=== PATIENT | male | born 1945 | race Caucasian/White ===

== ENCOUNTER 2018-07-18 12:53 | Inpatient (IN) ==
[2018-07-18 13:20] LABS: Basophils % 0.4 % (0.1-2.0); Eosinophils # 0.2 K/mm3 (0.0-0.4); Eosinophils % 2.2 % (0.1-12.0); Hematocrit 48.2 % (42.0-52.0); Lymphocytes # 2.6 K/mm3 (0.7-4.5); Lymphocytes % 34.8 % (10-50); Mean Corpuscular HGB Conc 33.1 g/dL (31.8-35.4); Mean Corpuscular Hemoglobin 30.8 pg (27.0-31.2); Mean Corpuscular Volume 92.9 fl (80-94); Mean Platelet Volume 8.2 fl (7.4-10.4); Monocytes # 0.6 K/mm3 (0.1-1.0); Monocytes % 7.3 % (1.7-9.3); Neutrophils # 4.1 K/mm3 (1.8-7.8); Neutrophils % 55.3 % (37.0-80.0); Platelet Count 313 K/mm3 (142-424); Red Blood Count 5.19 M/mm3 (4.60-6.20); Red Cell Distribution Width 13.3 % (11.5-17.5); White Blood Count 7.5 K/mm3 (4.8-10.8)
[2018-07-18 13:26] LABS: Anion Gap 15.5 mEq/L (5-15); Calcium 10.2 mg/dL (8.5-10.1); Potassium 3.5 mmoL/L (3.5-5.1)
--- NOTE | 2018-07-18 21:50 | History & Physical Report ---
*Admission Date: 07/18/18 *Chief complaint: rt lower leg pain *History of present illness: this wm was sent to [facility] card by his pcp -inés on chronic limb ischemia with acutely cyanotic cold purple right mid calf right foot and right digits. Successful reconstruction of the right popliteal artery and right superficial femoral artery 100% occlusion reduced to less than 10% with 2 bare-metal self-expanding stents preceded by drug-eluting ballooning Plan: Aspirin Plavix In one month I would like patient to be on Xarelto 2.5 by mouth twice a day along with aspirin 81 mg daily LDL less than 55 Avoidance of tobacco products Control of hypertension Risk factor modification Patient requires cardiovascular evaluation. I would recommend stress testing echocardiography and risk stratification for coronary artery disease as outpatient [facility] History Medical History: Reports:: Hypertension, Kidney Stones Denies:: Seizures Have you ever received a pneumonia vaccine?: No (PT REFUSES) Have you received a flu vaccine this season?: No (PT REFUSES) Laterality Cases: Bilateral: Tonsillectomy Other Surgeries: Yes: Other (R leg Sx, wrist sx) - *Social History Educational Level: Completed High School Smoking Status: Current every day smoker Tobacco Type: cigarettes #Yrs smoked (if former smoker): 50 Alcohol Intake: never Alcohol Intake Frequency:: 0-2 drinks per day Substance Use Type: denies use Occupational Status: retired Housing: house Household Members: spouse Travel in the last 8 weeks: None - Psychiatric History Expresses thoughts of harming self/others: None Suicide Plan Description: No Plan *Family Hx:: No significant family history Review of Systems - Review of Systems Review of systems:: pertinent systems reviewed and negative unless documented below - Constitutional Denies fatigue, Denies fever(s) - Eyes Denies change in vision - ENT Denies sore throat - *Cardiovascular Reports other (acute ischemia rt lower leg ), Denies chest pain - *Respiratory Denies cough - *Gastrointestinal Denies abdominal pain - *Genitourinary Denies blood in urine - *Musculoskeletal Denies joint pain - Integumentary/Breasts Denies rash - *Neurologic Denies confusion, Denies seizure-like activity - Psychiatric Denies anxiety Meds Home Medications Medication Instructions Recorded Confirmed Type B-complex with vitamin C capsule 1 cap PO DAILY 07/18/18 07/18/18 History aspirin 81 mg tablet,delayed 81 mg PO DAILY 07/18/18 07/18/18 History release cannabidiol (CBD) 100 mg/mL oral 10 mg PO DAILY ml 07/18/18 07/18/18 History solution cholecalciferol (vitamin D3) 1,000 1,000 unit PO DAILY 07/18/18 07/18/18 History unit capsule coenzyme Q10 200 mg capsule 200 mg PO DAILY 07/18/18 07/18/18 History lorazepam 1 mg tablet 1 mg PO HSP PRN 07/18/18 07/19/18 History omega-3 fatty acids 1,000 mg 1,000 mg PO DAILY 07/18/18 07/18/18 History capsule Allergies Allergy/AdvReac Type Severity Reaction Status Date / Time No Known Allergies Allergy Verified 07/18/18 16:34 Exam Vital signs and Labs for Last 24 Hours: Temp Pulse Resp BP Pulse Ox 98.3 F 66 18 200/89 H 96 07/18/18 16:41 07/18/18 18:50 07/18/18 18:50 07/18/18 18:50 07/18/18 18:50 Laboratory Results - last 24 hr 07/18/18 13:10: WBC 7.5, RBC 5.19, Hgb 16.0, Hct 48.2, MCV 92.9, MCH 30.8, MCHC 33.1, RDW 13.3, Plt Count 313, MPV 8.2, Neut % (Auto) 55.3, Lymph % (Auto) 34.8, [place] % (Auto) 7.3, Eos % (Auto) 2.2, Baso % (Auto) 0.4, Neut # (Auto) 4.1, Lymph # (Auto) 2.6, [place] # (Auto) 0.6, Eos # (Auto) 0.2, Baso # (Auto) 0.0 07/18/18 13:10: Sodium 136, Potassium 3.5, Chloride 99, Carbon Dioxide 25, Anion Gap 15.5 H, BUN 12, Creatinine 0.80, Estimated Creat Clear 88, Estimated GFR 95, Est GFR ( Amer) 115, Glucose 177 H, Calcium 10.2 H 07/18/18 15:14: Activated Clotting Time 300 H* I & O for Last 24 hours: Intake & Output 07/16/18 07/17/18 07/18/18 07/19/18 11:59 11:59 11:59 11:59 Intake Total 240 / 240 Balance 240 / 240 Weight 192 lb 7 oz - Constitutional no acute distress - *Routine HEENT Exam Head: Present: normocephalic Eye: Present: EOMI, PERRL. Absent: conjunctival icterus ENT: Present: mucous membranes dry - *Routine Neck Exam Present: supple. Absent: carotid bruit - *Routine Respiratory Exam Present: CTA bilaterally - *Routine Cardiovascular Exam Present: RRR, murmur, S4 - *Routine Abdominal Exam Present: soft - *Routine Extremities Exam Present: pallor, extremity cold to touch. Absent: pulses intact, calf tenderness - *Routine Skin Exam Absent: rash - *Routine Neurological Exam Present: alert, oriented X3, CN II-XII intact. Absent: motor deficit - Routine Psychiatric Exam Present: normal affect Assessment and Plan (1) Tobacco use Current visit: Yes Status: Acute Category: Medical Code(s): Z72.0 - Tobacco use (2) Ischemia of right lower extremity Current visit: Yes Status: Acute Category: Medical Code(s): I99.8 - Other disorder of circulatory system (3) Peripheral arterial disease Current visit: Yes Status: Chronic Category: Medical Code(s): I73.9 - Peripheral vascular disease, unspecified (4) HTN (hypertension) Current visit: No Status: Chronic Qualifiers: Hypertension type: essential hypertension Qualified Code(s): I10 - Essential (primary) hypertension Category: Medical Code(s): I10 - Essential (primary) hypertension
[2018-07-19 06:37] LABS: Basophils % 0.5 % (0.1-2.0); Eosinophils # 0.2 K/mm3 (0.0-0.4); Mean Corpuscular Volume 90.8 fl (80-94); Mean Platelet Volume 7.6 fl (7.4-10.4); Monocytes # 0.6 K/mm3 (0.1-1.0)
[2018-07-19 06:43] LABS: Anion Gap 13.7 mEq/L (5-15); Potassium 3.7 mmoL/L (3.5-5.1)
[2018-07-19 06:45] LABS: Eosinophils % 2.5 % (0.1-12.0); Hematocrit 42.9 % (42.0-52.0); Hemoglobin 14.4 g/dL (14.1-18.0); Lymphocytes % 26.6 % (10-50); Mean Corpuscular HGB Conc 33.5 g/dL (31.8-35.4); Mean Corpuscular Hemoglobin 30.4 pg (27.0-31.2); Monocytes % 7.8 % (1.7-9.3); Neutrophils # 4.8 K/mm3 (1.8-7.8); Neutrophils % 62.6 % (37.0-80.0); Platelet Count 257 K/mm3 (142-424); Red Blood Count 4.73 M/mm3 (4.60-6.20); Red Cell Distribution Width 13.3 % (11.5-17.5); White Blood Count 7.7 K/mm3 (4.8-10.8)
[2018-07-19 07:10] LABS: Calcium 8.5 mg/dL (8.5-10.1)
--- NOTE | 2018-07-19 10:28 | Progress Note ---
Subjective Date: 07/19/18 Time: 09:30 Principal diagnosis: ischemic right foot Interval history: Is a 72-year-old white gentleman who came into Dr. Perez's office yesterday with a cold right lower extremity. The patient was admitted to the hospital for an ischemic right foot and underwent right lower extremity runoff yesterday. Sessile reconstruction of the right popliteal artery and right superficial femoral arteries. The 100% occlusion was reduced to less than 10% with 2 bare- metal stents. The patient will remain on Plavix and aspirin for 30 days and then will be switched over to aspirin and Xarelto 2.5 mg. He denies any chest pain or pressure but he denies any shortness of breath, fever, chills, nausea, vomiting, diarrhea, PND or orthopnea. Throughout the night, the patient did have a palpable right pedal pulse. This morning the patient has lost his right pedal pulse. The pedal pulse could not be dopplered either. He states that his foot is more purple now than it was earlier this morning. His right lower extremity is cold and purple. He is having pain in the right lower extremity as well. He states that the pain in his right lower extremity is moderate to severe and associated with numbness and tingling. Exam Vital signs and Labs for Last 24 Hours: Temp Pulse Resp BP Pulse Ox 98.4 F 70 17 178/94 H 94 L 07/19/18 07:50 07/19/18 07:50 07/19/18 07:50 07/19/18 07:50 07/19/18 07:50 Laboratory Results - last 24 hr 07/18/18 13:10: WBC 7.5, RBC 5.19, Hgb 16.0, Hct 48.2, MCV 92.9, MCH 30.8, MCHC 33.1, RDW 13.3, Plt Count 313, MPV 8.2, Neut % (Auto) 55.3, Lymph % (Auto) 34.8, [place] % (Auto) 7.3, Eos % (Auto) 2.2, Baso % (Auto) 0.4, Neut # (Auto) 4.1, Lymph # (Auto) 2.6, [place] # (Auto) 0.6, Eos # (Auto) 0.2, Baso # (Auto) 0.0 07/18/18 13:10: Sodium 136, Potassium 3.5, Chloride 99, Carbon Dioxide 25, Anion Gap 15.5 H, BUN 12, Creatinine 0.80, Estimated Creat Clear 88, Estimated GFR 95, Est GFR ( Amer) 115, Glucose 177 H, Calcium 10.2 H 07/18/18 15:14: Activated Clotting Time 300 H* 07/19/18 05:55: WBC 7.7, RBC 4.73, Hgb 14.4, Hct 42.9, MCV 90.8, MCH 30.4, MCHC 33.5, RDW 13.3, Plt Count 257, MPV 7.6, Neut % (Auto) 62.6, Lymph % (Auto) 26.6, [place] % (Auto) 7.8, Eos % (Auto) 2.5, Baso % (Auto) 0.5, Neut # (Auto) 4.8, Lymph # (Auto) 2.0, [place] # (Auto) 0.6, Eos # (Auto) 0.2, Baso # (Auto) 0.0 07/19/18 05:55: Sodium 138, Potassium 3.7, Chloride 102, Carbon Dioxide 26, Anion Gap 13.7, BUN 8 D, Creatinine 0.77, Estimated Creat Clear 84, Estimated GFR 100, Est GFR ( Amer) 121, Glucose 176 H, Calcium 8.5 D I & O for Last 24 hours: Intake & Output 07/16/18 07/17/18 07/18/18 07/19/18 23:59 23:59 23:59 23:59 Intake Total 240 / 240 0 / 0 Balance 240 / 240 0 / 0 Weight 192 lb 7 oz - *Routine HEENT Exam Head: Present: normocephalic, atraumatic Eye: Present: EOMI, PERRL ENT: Present: mucous membranes moist - *Routine Neck Exam Present: supple, full ROM, normal carotid upstroke. Absent: JVD, carotid bruit, lymphadenopathy - *Routine Respiratory Exam Present: CTA bilaterally - *Routine Cardiovascular Exam Present: RRR, Normal S1, Normal S2. Absent: murmur, gallop, rubs - *Routine Abdominal Exam Present: soft, normoactive bowel sounds. Absent: tenderness - *Routine Extremities Exam Present: cyanosis (Right lower extremity). Absent: clubbing, edema, pulses intact (Right lower extremity has no pulse) - *Routine Skin Exam Present: warm (Except right lower extremity which is cold). Absent: rash - *Routine Neurological Exam Present: alert, oriented X3, CN II-XII intact. Absent: sensory deficit, motor deficit - Detailed Eye Exam Eyelids: Left normal inspection Progress Note: A&P (1) Ischemia of right lower extremity Status: Acute Current Visit: Yes (2) Right leg pain Status: Acute Current Visit: Yes (3) Peripheral arterial disease Status: Chronic Current Visit: Yes (4) Claudication Status: Acute Current Visit: No (5) HTN (hypertension) Status: Chronic Current Visit: No Assessment and Plan for All Diagnoses:: Plan: 1. The patient was admitted from Dr. Perez's office with an ischemic right lower extremity. The patient had a purple cold right lower extremity. He was taken to the cardiac catheterization laboratory and underwent a runoff of his right lower extremity. The patient did have reconstruction of his right popliteal and right superficial femoral arteries with 100% occlusion was reduced to less than 10% stenosis with 2 bare-metal stents. She will remain on aspirin and Plavix for dual antiplatelet therapy. 2. The patient has continued to have pain in the right lower extremity. He states even at stenting the pain never resolved. He is getting morphine as needed for this. 3. The patient did have a palpable right pedal pulse through the night last night. This morning around 8 AM there was no pedal pulse palpated and there was no pedal pulse by Doppler. The patient still has no pedal pulse on the right and there is no pulse by Doppler either. The patient's right lower extremity is cold and purple again this morning. The patient will be taken back down to the cardiac catheterization laboratory to undergo right lower extremity runoff with an antegrade stick. 4. The patient will remain n.p.o. 5. The patient has been educated on the risks and benefits of proceeding with the right lower extremity runoff. The patient has verbalized understanding and is agreeable in pursuing procedure. 6. The patient's blood pressure is elevated. This is most likely due to the pain he is currently experienced. We will continue to follow his blood pressure and make changes as needed. 7. His LDL goal less than 55. 8. Further recommend agents were made pending the patient's response to treatment following his repeat right lower extremity runoff today. Thank you for the opportunity help participate in the care of this patient.
--- NOTE | 2018-07-19 11:05 | Pharmacy Consult Notes ---
[facility] Pharmacy VTE Monitoring - Patient Demographics Admission date: 07/18/18 Report Date: 07/19/18 Time: 11:05 Allergies/Adverse Reactions: Patient Allergies No Known Allergies Allergy (Verified 07/18/18 16:34) Height: 1.85 m Weight: 87.288 kg Patient Problems: Current Active Problems Ischemia of right lower extremity (Acute) Right leg pain (Acute) Peripheral arterial disease (Chronic) - VTE Risk Labs: VTE Related Lab Results Hgb 14.4 g/dL (14.1-18.0) 07/19/18 05:55 Hct 42.9 % (42.0-52.0) 07/19/18 05:55 Plt Count 257 K/mm3 (142-424) 07/19/18 05:55 BUN 8 mg/dL (7-18) D 07/19/18 05:55 Creatinine 0.77 mg/dL (0.70-1.30) 07/19/18 05:55 Estimated Creat Clear 84 mL/min (50-200) 07/19/18 05:55 Clinical Trial Participant: No - Prophylaxis VTE Prophylaxis Ordered?: Yes Types of VTE Prophylaxis: TEDS Knee High
--- NOTE | 2018-07-19 13:22 | Progress Note ---
Internal Medicine - PN: Subj *Date: 07/19/18 *Time: 08:00 Interval history: doing better but no pulse in rt lower leg this am and card coming to see pt gu[place] Exam Vital signs and Labs for Last 24 Hours: Temp Pulse Resp BP Pulse Ox 98.4 F 16 L 17 157/89 H 95 07/19/18 07:50 07/19/18 12:48 07/19/18 07:50 07/19/18 12:48 07/19/18 12:48 Laboratory Results - last 24 hr 07/18/18 13:10: WBC 7.5, RBC 5.19, Hgb 16.0, Hct 48.2, MCV 92.9, MCH 30.8, MCHC 33.1, RDW 13.3, Plt Count 313, MPV 8.2, Neut % (Auto) 55.3, Lymph % (Auto) 34.8, [place] % (Auto) 7.3, Eos % (Auto) 2.2, Baso % (Auto) 0.4, Neut # (Auto) 4.1, Lymph # (Auto) 2.6, [place] # (Auto) 0.6, Eos # (Auto) 0.2, Baso # (Auto) 0.0 07/18/18 13:10: Sodium 136, Potassium 3.5, Chloride 99, Carbon Dioxide 25, Anion Gap 15.5 H, BUN 12, Creatinine 0.80, Estimated Creat Clear 88, Estimated GFR 95, Est GFR ( Amer) 115, Glucose 177 H, Calcium 10.2 H 07/18/18 15:14: Activated Clotting Time 300 H* 07/19/18 05:55: WBC 7.7, RBC 4.73, Hgb 14.4, Hct 42.9, MCV 90.8, MCH 30.4, MCHC 33.5, RDW 13.3, Plt Count 257, MPV 7.6, Neut % (Auto) 62.6, Lymph % (Auto) 26.6, [place] % (Auto) 7.8, Eos % (Auto) 2.5, Baso % (Auto) 0.5, Neut # (Auto) 4.8, Lymph # (Auto) 2.0, [place] # (Auto) 0.6, Eos # (Auto) 0.2, Baso # (Auto) 0.0 07/19/18 05:55: Sodium 138, Potassium 3.7, Chloride 102, Carbon Dioxide 26, Anion Gap 13.7, BUN 8 D, Creatinine 0.77, Estimated Creat Clear 84, Estimated GFR 100, Est GFR ( Amer) 121, Glucose 176 H, Calcium 8.5 D I & O for Last 24 hours: Intake & Output 07/17/18 07/18/18 07/19/18 07/20/18 11:59 11:59 11:59 11:59 Intake Total 240 / 240 Balance 240 / 240 Weight 192 lb 7 oz - Constitutional no acute distress - *Routine HEENT Exam Head: Present: normocephalic Eye: Present: EOMI, PERRL ENT: Present: mucous membranes dry - *Routine Neck Exam Absent: JVD - *Routine Respiratory Exam Present: CTA bilaterally - *Routine Cardiovascular Exam Present: RRR Comments: no def pulse rt lower leg - *Routine Abdominal Exam Present: soft - *Routine Extremities Exam Absent: pulses intact, calf tenderness - *Routine Skin Exam Present: pallor - *Routine Neurological Exam Present: alert, CN II-XII intact - Routine Psychiatric Exam Present: normal affect Assessment and Plan (1) Tobacco use Current visit: Yes Status: Acute Category: Medical Code(s): Z72.0 - Tobacco use (2) Ischemia of right lower extremity Current visit: Yes Status: Acute Category: Medical Code(s): I99.8 - Other disorder of circulatory system (3) Peripheral arterial disease Current visit: Yes Status: Chronic Category: Medical Code(s): I73.9 - Peripheral vascular disease, unspecified (4) HTN (hypertension) Current visit: No Status: Chronic Qualifiers: Hypertension type: essential hypertension Qualified Code(s): I10 - Essential (primary) hypertension Category: Medical Code(s): I10 - Essential (primary) hypertension
[2018-07-20 07:20] LABS: Basophils % 0.2 % (0.1-2.0); Eosinophils # 0.1 K/mm3 (0.0-0.4); Hematocrit 40.7 % (42.0-52.0); Hemoglobin 13.2 g/dL (14.1-18.0); Lymphocytes # 1.3 K/mm3 (0.7-4.5); Lymphocytes % 19.4 % (10-50); Mean Corpuscular HGB Conc 32.4 g/dL (31.8-35.4); Mean Corpuscular Hemoglobin 29.9 pg (27.0-31.2); Mean Platelet Volume 7.6 fl (7.4-10.4); Monocytes # 0.6 K/mm3 (0.1-1.0); Neutrophils # 4.9 K/mm3 (1.8-7.8); Neutrophils % 70.5 % (37.0-80.0); Platelet Count 223 K/mm3 (142-424); Red Blood Count 4.43 M/mm3 (4.60-6.20); Red Cell Distribution Width 13.6 % (11.5-17.5)
[2018-07-20 07:27] LABS: Anion Gap 11.7 mEq/L (5-15); Calcium 8.6 mg/dL (8.5-10.1); Potassium 3.7 mmoL/L (3.5-5.1)
--- NOTE | 2018-07-20 08:08 | Progress Note ---
Subjective Date: 07/20/18 Time: 08:05 Principal diagnosis: ischemic right foot Interval history: 72-year-old white male in bed in no acute distress. No pain in the right leg this morning. The foot is warm with a good pulse. Discussed the necessity for smoking cessation. Exam Vital signs and Labs for Last 24 Hours: Temp Pulse Resp BP Pulse Ox 98.2 F 69 16 139/70 97 07/20/18 08:00 07/20/18 08:00 07/20/18 08:00 07/20/18 08:00 07/20/18 08:00 Laboratory Results - last 24 hr 07/19/18 11:38: Activated Clotting Time 307 H* 07/19/18 11:57: Activated Clotting Time 285 H* 07/19/18 12:35: Activated Clotting Time 233 H* 07/19/18 13:09: Activated Clotting Time 226 H* 07/19/18 13:36: Activated Clotting Time 199 H* 07/20/18 06:21: WBC 7.0, RBC 4.43 L, Hgb 13.2 L, Hct 40.7 L, MCV 92.0, MCH 29.9, MCHC 32.4, RDW 13.6, Plt Count 223, MPV 7.6, Neut % (Auto) 70.5, Lymph % (Auto) 19.4, [place] % (Auto) 8.0, Eos % (Auto) 2.0, Baso % (Auto) 0.2, Neut # (Auto) 4.9, Lymph # (Auto) 1.3, [place] # (Auto) 0.6, Eos # (Auto) 0.1, Baso # (Auto) 0.0 07/20/18 06:21: Sodium 139, Potassium 3.7, Chloride 103, Carbon Dioxide 28, Anion Gap 11.7, BUN 10, Creatinine 0.74, Estimated Creat Clear 84, Estimated GFR 104, Est GFR ( Amer) 126, Glucose 167 H, Calcium 8.6 I & O for Last 24 hours: Intake & Output 07/17/18 07/18/18 07/19/18 07/20/18 11:59 11:59 11:59 11:59 Intake Total 240 / 240 60 / 60 Balance 240 / 240 60 / 60 Weight 192 lb 7 oz 192 lb 6.993 oz - *Routine HEENT Exam Head: Present: normocephalic Eye: Present: EOMI, PERRL ENT: Present: mucous membranes moist - *Routine Respiratory Exam Present: CTA bilaterally. Absent: accessory muscle use, rales, rhonchi, wheezes - *Routine Cardiovascular Exam Present: RRR. Absent: murmur, gallop, rubs - *Routine Extremities Exam Absent: edema, calf tenderness - *Routine Skin Exam Present: warm. Absent: cyanosis - *Routine Neurological Exam Present: alert, oriented X3, moving all extremities Progress Note: A&P (1) Tobacco use Status: Acute Current Visit: Yes (2) Ischemia of right lower extremity Status: Acute Current Visit: Yes (3) Peripheral arterial disease Status: Chronic Current Visit: Yes (4) HTN (hypertension) Status: Chronic Current Visit: No Assessment and Plan for All Diagnoses:: 1. Okay for discharge home from cardiology standpoint. 2. Continue aspirin 81 mg daily along with Brilinta 90 mg twice daily. In 1 month we will plan to discontinue Brilinta in favor of Xarelto 2.5 mg twice daily. 3. Tobacco cessation 4. Continue Coreg 12.5 mg twice daily 5. Follow-up in 1 week.
--- NOTE | 2018-07-20 13:22 | Discharge Summary ---
General - General Admission date:: 07/18/18 Discharge date: 07/20/18 HPI HPI: this wm was sent to [facility] card by his pcp -inés on chronic limb ischemia with acutely cyanotic cold purple right mid calf right foot and right digits. Successful reconstruction of the right popliteal artery and right superficial femoral artery 100% occlusion reduced to less than 10% with 2 bare-metal self-expanding stents preceded by drug-eluting ballooning Plan: Aspirin Plavix In one month I would like patient to be on Xarelto 2.5 by mouth twice a day along with aspirin 81 mg daily LDL less than 55 Avoidance of tobacco products Control of hypertension Risk factor modification Patient requires cardiovascular evaluation. I would recommend stress testing echocardiography and risk stratification for coronary artery disease as outpatient Hospital Course Hospital Course: 07/18/18 Impression: Acute on chronic limb ischemia with acutely cyanotic cold purple right mid calf right foot and right digits. Successful reconstruction of the right popliteal artery and right superficial femoral artery 100% occlusion reduced to less than 10% with 2 bare-metal self-expanding stents preceded by drug-eluting ballooning Plan: Aspirin Plavix In one month I would like patient to be on Xarelto 2.5 by mouth twice a day along with aspirin 81 mg daily LDL less than 55 Avoidance of tobacco products Control of hypertension Risk factor modification Patient requires cardiovascular evaluation. I would recommend stress testing echocardiography and risk stratification for coronary artery disease as outpatient 07/19/18 Impression: Successful percutaneous revascularization of acutely thrombosed right leg 100% occlusion reduced to less than 10% with 4 self-expanding stents preceded by angioplasty and followed by post stent angioplasty Plan: Brilinta 90 twice a day plus aspirin 81 mg daily Avoidance of tobacco products LDL less than 55 Physical therapy Aggressive risk factor modification Objective Vital signs: Temp Pulse Resp BP Pulse Ox 98.7 F 64 18 130/62 97 07/20/18 11:43 07/20/18 11:43 07/20/18 11:43 07/20/18 11:43 07/20/18 11:43 no acute distress - *Routine HEENT Exam Head: Present: normocephalic Eye: Present: PERRL ENT: Present: mucous membranes moist - *Routine Respiratory Exam Present: CTA bilaterally - *Routine Cardiovascular Exam Present: RRR - *Routine Abdominal Exam Present: soft, normoactive bowel sounds - *Routine Extremities Exam Present: full ROM Comments: dressing to josse femoral, bruising noted - *Routine Neurological Exam Present: alert, oriented X3 - Routine Psychiatric Exam Present: normal affect Results Labs on day of discharge: Labs from last 24 hours 07/20/18 07/20/18 07/19/18 06:21 06:21 13:36 WBC 7.0 RBC 4.43 L Hgb 13.2 L Hct 40.7 L MCV 92.0 MCH 29.9 MCHC 32.4 RDW 13.6 Plt Count 223 MPV 7.6 Neut % (Auto) 70.5 Lymph % (Auto) 19.4 [place] % (Auto) 8.0 Eos % (Auto) 2.0 Baso % (Auto) 0.2 Neut # (Auto) 4.9 Lymph # (Auto) 1.3 [place] # (Auto) 0.6 Eos # (Auto) 0.1 Baso # (Auto) 0.0 Activated Clotting Time 199 H* Sodium 139 Potassium 3.7 Chloride 103 Carbon Dioxide 28 Anion Gap 11.7 BUN 10 Creatinine 0.74 Estimated Creat Clear 84 Estimated GFR 104 Est GFR ( Amer) 126 Glucose 167 H Calcium 8.6 07/19/18 07/19/18 07/19/18 13:09 12:35 11:57 WBC RBC Hgb Hct MCV MCH MCHC RDW Plt Count MPV Neut % (Auto) Lymph % (Auto) [place] % (Auto) Eos % (Auto) Baso % (Auto) Neut # (Auto) Lymph # (Auto) [place] # (Auto) Eos # (Auto) Baso # (Auto) Activated Clotting Time 226 H* 233 H* 285 H* Sodium Potassium Chloride Carbon Dioxide Anion Gap BUN Creatinine Estimated Creat Clear Estimated GFR Est GFR ( Amer) Glucose Calcium 07/19/18 11:38 WBC RBC Hgb Hct MCV MCH MCHC RDW Plt Count MPV Neut % (Auto) Lymph % (Auto) [place] % (Auto) Eos % (Auto) Baso % (Auto) Neut # (Auto) Lymph # (Auto) [place] # (Auto) Eos # (Auto) Baso # (Auto) Activated Clotting Time 307 H* Sodium Potassium Chloride Carbon Dioxide Anion Gap BUN Creatinine Estimated Creat Clear Estimated GFR Est GFR ( Amer) Glucose Calcium - Additional Comments maureen will round later, all orders per nikko DS: Diagnosis - Discharge Diagnosis (1) Tobacco use Status: Acute (2) Ischemia of right lower extremity Status: Acute (3) Peripheral arterial disease Status: Chronic (4) HTN (hypertension) Status: Chronic Discharge Plan - Patient Discharge Instructions ACTIVITY: Continue current activity DIET: continue same diet Patient Instructions: Intermittent Claudication (Alternative Therapy) - Follow up Plan Follow up with: Cameron Perez MD [Staff Physician] - 1 week Disposition: Home, [facility] Medications: Home Medications Medication Instructions Recorded Confirmed Type B-complex with vitamin C capsule 1 cap PO DAILY 07/18/18 07/18/18 History aspirin 81 mg tablet,delayed 81 mg PO DAILY 07/18/18 07/18/18 History release cannabidiol (CBD) 100 mg/mL oral 10 mg PO DAILY ml 07/18/18 07/18/18 History solution cholecalciferol (vitamin D3) 1,000 1,000 unit PO DAILY 07/18/18 07/18/18 History unit capsule coenzyme Q10 200 mg capsule 200 mg PO DAILY 07/18/18 07/18/18 History lorazepam 1 mg tablet 1 mg PO HSP PRN 07/18/18 07/19/18 History omega-3 fatty acids 1,000 mg 1,000 mg PO DAILY 07/18/18 07/18/18 History capsule Aspirin [Aspirin 81mg chewable 81 mg PO DAILY 30 Days #30 tab.chew 07/20/18 Rx tab] Carvedilol [Coreg 12.5mg 12.5 mg PO BID 30 Days #60 tablet 07/20/18 Rx Tablet] Ticagrelor [Brilinta 90mg Tablet] 90 mg PO BID 30 Days #60 tablet 07/20/18 Rx Prescriptions/Medication Reconciliation: New Carvedilol [Coreg 12.5mg Tablet] 12.5 mg PO BID 30 Days #60 tablet Ticagrelor [Brilinta 90mg Tablet] 90 mg PO BID 30 Days #60 tablet Aspirin [Aspirin 81mg chewable tab] 81 mg PO DAILY 30 Days #30 tab.chew Continue lorazepam 1 mg tablet 1 mg PO HSP PRN PRN Reason: Sleep coenzyme Q10 200 mg capsule 200 mg PO DAILY omega-3 fatty acids 1,000 mg capsule 1,000 mg PO DAILY Discontinued aspirin 81 mg tablet,delayed release 81 mg PO DAILY B-complex with vitamin C capsule 1 cap PO DAILY cannabidiol (CBD) 100 mg/mL oral solution 10 mg PO DAILY ml cholecalciferol (vitamin D3) 1,000 unit capsule 1,000 unit PO DAILY
== END 2018-07-20 14:35 | disposition home or self-care (01) | DRG 253 ==
LOC: 2ND 12:53 → CATHLAB 12:53 → OBSVTOIN 15:57
PROVIDERS: ADMIT Emergency Medicine; ATTEND Emergency Medicine
DX: I75.021 Atheroembolism of right lower extremity; Z79.02 Long term (current) use of antithrombotics/antiplatelets; I10 Essential (primary) hypertension; I87.1 Compression of vein; I70.92 Chronic total occlusion of artery of the extremities; I70.221 Atherosclerosis of native arteries of extremities with rest pain, right leg; Z79.899 Other long term (current) drug therapy; I74.3 Embolism and thrombosis of arteries of the lower extremities; Z79.01 Long term (current) use of anticoagulants; Z72.0 Tobacco use
CPT/HCPCS: 36200; 36415; 37226; 75710; 75716; 80048; 85025; 85347; 99152; 99153; C1725; C1760; C1766; C1769; C1876; C1894; J1644; Q9966

== ENCOUNTER → 2018-08-01 13:19 | Outpatient (CLI) | payer MEDICARE, SELFPAY | PROVIDERS: PCP Family Medicine; Visit Provider Internal Medicine | DX: I73.9 Peripheral vascular disease, unspecified (principal) | CPT/HCPCS: 93926 ==

== ENCOUNTER 2018-08-03 13:45 | Outpatient (RCR) | payer MEDICARE, SELFPAY | END 2018-08-03 13:50 | disposition home or self-care (01) | LOC: PT 13:45 | PROVIDERS: Visit Provider Family Medicine | DX: R25.2 Cramp and spasm (principal) | CPT/HCPCS: 97014; 97163; G0283 ==

== ENCOUNTER → 2018-11-29 10:34 | Outpatient (CLI) | payer MEDICARE, SELFPAY ==
[2018-11-29 10:38] LABS: Microscopic, Urine URINE MICROSCOPIC (MICROSCOPIC)
[2018-11-29 11:18] LABS: Appearance,Urine CLEAR (Clear); Bilirubin,Urine Negative (Negative); Blood, Urine Negative (Negative); Color,Urine YELLOW (Yellow); Glucose,Urine (UA) Negative (Negative); Ketones,Urine Negative (Negative); Leukocyte Esterase,Urine Negative (Negative); Nitrate,Urine Negative (Negative); Protein,Urine Negative (Negative); Urobilinogen,Urine 0.2 EU/dl (0.2)
[2018-11-29 11:43] LABS: Bacteria,Urine Trace /lpf; Mucus,Urine 2+ /lpf; Sperm,Urine OCC /lpf; WBC,Urine Occasional #/hpf (0-3)
[2018-11-29 12:41] LABS: Anion Gap 13.9 mEq/L (5-15); Blood Urea Nitrogen 10 mg/dL (7-18); Calcium 9.1 mg/dL (8.5-10.1); Carbon Dioxide 27 mmol/L (21.0-32.0); Chloride 102 mmol/L (98-107); Estimated Glomerular Filt Rate 111 ml/min (>60); GFR (African American) 134 ML/MIN (>60); Glucose 103 mg/dL (74-106); Potassium 3.9 mmoL/L (3.5-5.1); Sodium 139 mmol/L (136-145)
== END ==
PROVIDERS: Visit Provider Surgery
DX: K40.90 Unilateral inguinal hernia, without obstruction or gangrene, not specified as recurrent (principal)
CPT/HCPCS: 80048; 81001

== ENCOUNTER 2020-12-04 13:32 | Emergency (ER) | payer MEDICARE, SELFPAY ==
[2020-12-04 13:33] VITALS: BP 190/101; PULSE 95; RESP 18; TEMP 37; O2SAT 98; BMI 25.3
--- NOTE | 2020-12-04 13:38 | ECG_ITS ---
APPROVED REPORT Exam: Resting ECG HR:67 bpm ECG Measurements Heart Rate 67 AXES UT 164 P 53 QRSd 110 QRS -23 QT 400 T 43 QTc 422 Conclusion Normal sinus rhythm Incomplete right bundle branch block Borderline ECG Electronically signed by : Bruce Pacheco, 12/04/2020 21:59:48
--- NOTE | 2020-12-04 13:41 | XR_ITS ---
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 No dislocation. Some calcification in the rotator cuff consistent with calcific tendinitis. Some degenerative change of the acromioclavicular and glenohumeral joints. IMPRESSION: Comminuted displaced angulated fracture of the proximal left humerus. Some degenerative change of the acromioclavicular and glenohumeral joints. Dictated by: Avi Barrera MD 12/04/2020 14:25 Avi Barrera MD in [place] 12/04/2020 14:26
--- NOTE | 2020-12-04 13:49 | [facility].EDGENADL ---
ED Disposition Clinical Impression: Closed fracture of left proximal humerus Qualifiers: Encounter type: initial encounter Fracture morphology: other fracture Fracture alignment: displaced Qualified Code(s): S42.292A - Other displaced fracture of upper end of left humerus, initial encounter for closed fracture Disposition: Home, Self-Care Condition on Discharge: Good Instructions: DI for Humeral Fracture Prescriptions: Oxycodone HCl/Acetaminophen [Percocet 5/325mg tablet] 1 tab PO TID PRN #9 tab PRN Reason: pain Transmission Status: Received by Primary [facility] Referrals: Marta Martinez MD [Primary Care Provider] - 3 days Humberto Lopez MD [Staff Physician] - 12/08/20 - Critical Care Critical Care Time: No Attestation: On 12/04/20, the high probability of a clinically significant, sudden or life threatening deterioration of the following system(s) required my full and direct attention, intervention and personal management. The time I documented below is in addition to time spent performing reported procedures but includes the following listed in this critical care notation. Medical Decision Making - Medical Records Medical records reviewed: Yes: I reviewed the patient's medical records. - Apolinar Inquiry Pt receiving controlled substance: Yes Apolinar was queried for this patient: No (emergent pain, acute fx) Risks and benefits of using a controlled substance: were discussed with pt by me Vital Signs: 12/04/20 13:33 Temperature 98.6 F Temperature Source Oral Pulse Rate [Radial] 95 H Respiratory Rate 18 Blood Pressure [Right Arm] 190/101 H Blood Pressure Mean [Right Arm] 130 Blood Pressure Position [Right Arm] Sitting 02 Sat by Pulse Oximetry 98 Oxygen Delivery Method Room Air Orders (Tests/Meds): ED MEDICATIONS Generic Name Dose Route Start Last Admin Trade Name Freq PRN Reason Stop Dose Admin Oxycodone/Acetaminophen 1 each 12/04/20 14:05 Oxycodone 7.5mg W/Apap 325mg Tablet PO 12/04/20 14:06 ONCE ONE ORDERS Category Date Time Status Shoulder XR left minimum 2 views [XR shoulder LT min 2V Exams 12/04/20 13:41 Taken ] Stat - Radiology Data #1 Image(s): Shoulder Image Reviewed: Yes I reviewed the patient's radiology image Left proximal humerus fracture Medical Decision Narrative: Patient with left proximal humerus fracture. No head injury, patient landed on shoulder. He denies any neck or back pain. No other injuries on exam. Given sling and swath, Percocet here and discharged home with prescription for the same for acute fracture. Referred to orthopedic surgery, advised to be nonweightbearing left upper extremity. He is neurovascularly intact distally. General Adult HPI - General Chief complaint: PAIN Stated complaint: AO [id number] injured lt shoulder Time Seen by Provider: 12/04/20 13:49 Mode of Arrival: Ambulatory Limitations: No Limitations Description of Symptoms (Recalled from ER Triage Doc. 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 PT DENIES ANY LOC, NECK PAIN, ABD PAIN. ABRASION NOTED TO LT ARM. - History of Present Illness HPI narrative: This is a 75-year-old male with a past medical history significant for hypertension who presents to the emergency department for left shoulder injury after he fell off his riding lawn more on a hill. He landed on his left shoulder. No head, neck, back, abdominal or chest pain. He is right-hand dominant. No numbness, tingling of his hand. No loss of consciousness. Pain is worse in the shoulder with movement. - Related Data Home Medications Medication Instructions Recorded Confirmed coenzyme Q10 200 mg capsule 200 mg PO DAILY 07/18/18 11/29/18 lorazepam 1 mg tablet 1 mg PO HSP PRN 07/18/18 11/29/18 omega-3 fatty acids 1,000 mg 1,000 mg PO DAILY 07/18/18 11/29/18 capsule metformin 1,000 mg tablet 1,000 mg PO BID 08/15/18
--- NOTE | 2020-12-04 14:25 | PC.NURSE ---
APPLIED SWATH AND SLING ON LEFT SHOULDER PER MD VERBAL ORDER. PATIENT REPORTED THE SLING FELT COMFORTABLE
[2020-12-04 14:30] VITALS: BP 145/67; PULSE 88; RESP 14; TEMP 36.7; O2SAT 97
== END 2020-12-04 14:35 | disposition home or self-care (01) ==
PROVIDERS: Emergency Provider Emergency Medicine; PCP Nurse Practitioner
DX: S42.292A Other displaced fracture of upper end of left humerus, initial encounter for closed fracture (principal); W30.89XA Contact with other specified agricultural machinery, initial encounter; Y92.017 Garden or yard in single-family (private) house as the place of occurrence of the external cause; I10 Essential (primary) hypertension; E78.5 Hyperlipidemia, unspecified; F17.210 Nicotine dependence, cigarettes, uncomplicated; Z87.442 Personal history of urinary calculi; E11.9 Type 2 diabetes mellitus without complications
CPT/HCPCS: 73030; 93005; 99282

== ENCOUNTER → 2020-12-12 12:49 | Outpatient (CLI) | payer MEDICARE, SELFPAY ==
--- NOTE | 2020-12-12 12:53 | XR_ITS ---
PROCEDURE: XR SHOULDER LT MIN 2V CLINICAL INDICATION: lt proximal humerus fracture COMPARISON: CR XR SHOULDER LT MIN 2V from 12/04/2020 FINDINGS: There is a comminuted fracture of the proximal humerus. There is good alignment of the fracture fragments. The lateral displacement has shown some improvement compared to the previous exam with only minimal lateral displacement of the distal fracture fragment at this. There is some developing callus formation medially. Lobular calcification noted superior to the humeral head consistent with calcific tendinitis. 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 There are old left-sided rib fractures. IMPRESSION: Comminuted proximal humeral fracture with good alignment and developing callus formation Dictated by: Faustino De León MD 12/12/2020 13:41 Faustino De León MD in [place] 12/12/2020 13:41
== END ==
PROVIDERS: PCP Nurse Practitioner; Visit Provider Orthopaedic Surgery
DX: S42.202A Unspecified fracture of upper end of left humerus, initial encounter for closed fracture (principal)
CPT/HCPCS: 73030

== ENCOUNTER → 2020-12-26 10:13 | Outpatient (CLI) | payer MEDICARE, SELFPAY ==
--- NOTE | 2020-12-26 10:18 | XR_ITS ---
PROCEDURE: XR SHOULDER LT MIN 2V CLINICAL INDICATION: LT proximal humerus fx COMPARISON: CR XR SHOULDER LT MIN 2V from 12/04/2020 CR XR SHOULDER LT MIN 2V from 12/12/2020 FINDINGS: Comminuted proximal humeral shaft fracture once again noted with good alignment. There is some minimal callus formation developing. Calcification once again noted superior to the humeral head suggesting calcific tendinitis. Old left-sided rib fractures. IMPRESSION: Healing left comminuted proximal humeral shaft fracture Dictated by: Faustino De León MD 12/26/2020 10:53 Faustino De León MD in [place] 12/26/2020 10:53
== END ==
PROVIDERS: PCP Nurse Practitioner; Visit Provider Orthopaedic Surgery
DX: S42.202A Unspecified fracture of upper end of left humerus, initial encounter for closed fracture (principal)
CPT/HCPCS: 73030

== ENCOUNTER → 2021-01-16 10:22 | Outpatient (CLI) | payer MEDICARE, SELFPAY ==
--- NOTE | 2021-01-16 10:27 | XR_ITS ---
PROCEDURE: XR SHOULDER LT MIN 2V CLINICAL INDICATION: LT prox humerus fx Follow-up fracture COMPARISON: CR XR SHOULDER LT MIN 2V from 12/04/2020 CR XR SHOULDER LT MIN 2V from 12/12/2020 CR XR SHOULDER LT MIN 2V from 12/26/2020 FINDINGS: Comminuted fracture of the proximal humerus is once again noted. There is 1.5 cm lateral displacement of the distal fracture fragment with slight increase in medial angulation of the distal fracture fragment. There is some developing callus formation. There are old left-sided rib fractures and there is coarse calcification superior to the greater tuberosity of the humerus IMPRESSION: Comminuted fracture of the proximal left humerus at the diaphyseal metaphyseal junction with slight increase in lateral displacement and medial angulation of the distal fracture fragment. Developing callus formation is noted. Dictated by: Faustino De León MD 01/16/2021 12:38 Faustino De León MD in [place] 01/16/2021 12:38
== END ==
PROVIDERS: PCP Nurse Practitioner; Visit Provider Orthopaedic Surgery
DX: S42.202A Unspecified fracture of upper end of left humerus, initial encounter for closed fracture (principal)
CPT/HCPCS: 73030

== ENCOUNTER → 2021-03-04 13:00 | Outpatient (CLI) | payer MEDICARE, SELFPAY ==
--- NOTE | 2021-03-04 13:04 | XR_ITS ---
PROCEDURE: XR SHOULDER LT MIN 2V CLINICAL INDICATION: left proximal humerus fx COMPARISON: CR XR SHOULDER LT MIN 2V from 12/04/2020 CR XR SHOULDER LT MIN 2V from 12/12/2020 CR XR SHOULDER LT MIN 2V from 12/26/2020 CR XR SHOULDER LT MIN 2V from 01/16/2021 FINDINGS: There is a healing comminuted fracture involving the proximal aspect of the humerus at the proximal diaphysis with some developing callus formation. There is mild lateral displacement of the distal fracture fragment not significantly changed. 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 No evidence of dislocation IMPRESSION: Healing displaced proximal left humerus fracture Dictated by: Faustino De León MD 03/04/2021 17:17 Faustino De León MD in [place] 03/04/2021 17:17
== END ==
PROVIDERS: PCP Nurse Practitioner; Visit Provider Orthopaedic Surgery
DX: S42.202A Unspecified fracture of upper end of left humerus, initial encounter for closed fracture (principal)
CPT/HCPCS: 73030